=== PATIENT | female | born 1995 | race Caucasian/White ===

== ENCOUNTER 2016-08-08 17:07 | Emergency (ER) | payer OTHER ==
[2016-08-08 17:14] VITALS: BP 123/73
[2016-08-08] MEDS ORDERED: DIPHENHYDRAMINE HCL 50 MG CAPSULE PO ONE (17:51)
[2016-08-08] MEDS ORDERED: PREDNISONE 20 MG TABLET PO ONE (17:51)
--- NOTE | 2016-08-08 17:55 | ER Document Report ---
HPI - HPI Patient complains to provider of: facial rash Onset: This morning Onset/Duration: Gradual Quality of pain: No pain Pain Level: 0 Context: Patient complains of pruritic skin rash to her face. Patient does report using a new facial cleanser 3 days ago. Patient does complain of some mild itching. Patient without any difficulty breathing or swallowing. Associated Symptoms: Other - Facial rash. denies: Fever, Vomiting Exacerbated by: Denies Relieved by: Denies Similar symptoms previously: No Recently seen / treated by doctor: No - ROS ROS below otherwise negative: Yes Systems Reviewed and Negative: Yes All other systems reviewed and negative - CONSTITUTIONAL Constitutional: DENIES: Fever, Chills - EENT EENT: DENIES: Sore Throat - CARDIOVASCULAR Cardiovascular: DENIES: Chest pain - RESPIRATORY Respiratory: DENIES: Trouble Breathing - GASTROINTESTINAL Gastrointestinal: DENIES: Patient vomiting - REPRODUCTIVE Reproductive: DENIES: : - DERM Skin Color: Normal Skin Problems: Rash <MARC DEWITT - Last Filed: 08/08/16 19:08> Past Medical History - General Information source: Patient - Social History Smoking Status: Never Smoker Frequency of alcohol use: None Drug Abuse: None Occupation: food mixer Family History: DM Patient has suicidal ideation: No Patient has homicidal ideation: No Endocrine Medical History: Reports: Hx Hypothyroidism Renal/ Medical History: Reports: Hx Ovarian Cysts - PCOS. Denies: Hx Peritoneal Dialysis Past Surgical History: Reports: Hx Oral Surgery - wisdom teeth - Immunizations Immunizations up to date: Yes Hx Diphtheria, Pertussis, Tetanus Vaccination: Yes <MARC DEWITT - Last Filed: 08/08/16 19:08> Vertical Provider Document - CONSTITUTIONAL Agree With Documented VS: Yes Exam Limitations: No Limitations General Appearance: WD/WN, No Apparent Distress - INFECTION CONTROL TRAVEL OUTSIDE OF THE [place] IN LAST 30 DAYS: No - HEENT HEENT: Atraumatic, Normal ENT Exam, Normocephalic - NECK Neck: Normal Inspection - RESPIRATORY Respiratory: Breath Sounds Normal, No Respiratory Distress O2 Sat by Pulse Oximetry: 97 - CARDIOVASCULAR Cardiovascular: Regular Rate, Regular Rhythm - MUSCULOSKELETAL/EXTREMETIES Musculoskeletal/Extremeties: MAEW - NEURO Level of Consciousness: Awake, Alert, Appropriate Motor/Sensory: No Motor Deficit - DERM Integumentary: Warm, Dry, Rash - Erythematous maculopapular rash to face and upper chest area <MARC DEWITT - Last Filed: 08/08/16 19:08> Course - Re-evaluation Re-evalutation: 08/08/16 17:52 Pt with skin changes concerning for contact dermatitis. No evidence of urticaria, no angioedema - Vital Signs Vital signs: Temp Pulse Resp BP Pulse Ox 97.7 F 71 18 123/73 97 08/08/16 17:14 08/08/16 17:14 08/08/16 17:14 08/08/16 17:14 08/08/16 17:14 <MARC DEWITT - Last Filed: 08/08/16 19:08> - Vital Signs Vital signs: Temp Pulse Resp BP Pulse Ox 97.7 F 71 18 123/73 97 08/08/16 17:14 08/08/16 17:14 08/08/16 17:14 08/08/16 17:14 08/08/16 19:09 <GAURI BUENROSTRO - Last Filed: 08/09/16 14:44> Discharge <MARC DEWITT - Last Filed: 08/08/16 19:08> <GAURI BUENROSTRO - Last Filed: 08/09/16 14:44> - Discharge Clinical Impression: Dermatitis Condition: Stable Disposition: HOME, SELF-CARE Instructions: Corticosteroid Medication ([facility]), Contact Dermatitis ([facility]), Use of Diphenhydramine Additional Instructions: Return immediately for any new or worsening symptoms Followup with your primary care provider, call tomorrow to make a followup appointment Prescriptions: Prednisone [Deltasone 20 mg Tablet] 3 tab PO DAILY 5 Days Referrals: [facility] [Provider Group] - Follow up as needed
== END 2016-08-08 18:19 | disposition home or self-care (01) ==
LOC: ER 17:07
DX: L30.9 Dermatitis, unspecified (principal); E03.9 Hypothyroidism, unspecified
CPT/HCPCS: 99282; J7512

== ENCOUNTER 2016-11-06 20:09 | Emergency (ER) | payer OTHER ==
[2016-11-06 20:14] VITALS: BP 122/74
--- NOTE | 2016-11-06 23:01 | ER Document Report ---
HPI - HPI Patient complains to provider of: Sinus pain, congestion, cough, sore throat Pain Level: 4 Context: Patient is a 21-year-old female that comes emergency department for chief complaint of cold symptoms for 1 week, however she states that she has had increased pain along her sinuses, she points to her right maxillary sinus and left maxillary sinus as the most uncomfortable places, she has some nasal discharge, she has occasional cough with clear sputum, she has a sore throat and occasional hoarseness. She denies fever, difficulty breathing or swallowing , neck pain, headache. LMP within the past month. PMH PCOS and hypothyroidism. She denies smoking. - REPRODUCTIVE Reproductive: DENIES: : Past Medical History - General Information source: Patient - Social History Smoking Status: Never Smoker Chew tobacco use (# tins/day): No Frequency of alcohol use: None Drug Abuse: None Lives with: Family Family History: DM Patient has suicidal ideation: No Patient has homicidal ideation: No Endocrine Medical History: Reports: Hx Hypothyroidism Renal/ Medical History: Reports: Hx Ovarian Cysts - PCOS. Denies: Hx Peritoneal Dialysis Past Surgical History: Reports: Hx Oral Surgery - wisdom teeth - Immunizations Immunizations up to date: Yes Hx Diphtheria, Pertussis, Tetanus Vaccination: Yes Vertical Provider Document - CONSTITUTIONAL General Appearance: WD/WN, No Apparent Distress - INFECTION CONTROL TRAVEL OUTSIDE OF THE [place] IN LAST 30 DAYS: No - HEENT HEENT: Atraumatic, Normocephalic. negative: Normal ENT Exam - Patient is tender over maxillary sinuses, has mild nasal congestion, has mild throat erythema, unremarkable tonsils, clear airway, unremarkable ENT exam otherwise - NECK Neck: Normal Inspection - RESPIRATORY Respiratory: Breath Sounds Normal, No Respiratory Distress O2 Sat by Pulse Oximetry: 98 - CARDIOVASCULAR Cardiovascular: Regular Rate, Regular Rhythm - GI/ABDOMEN Gastrointestinal: Abdomen Soft, Abdomen Non-Tender - BACK Back: Normal Inspection - MUSCULOSKELETAL/EXTREMETIES Musculoskeletal/Extremeties: MAEW, FROM, Non-Tender - NEURO Level of Consciousness: Awake, Alert, Appropriate - DERM Integumentary: Warm, Dry, No Rash Course - Re-evaluation Re-evalutation: Physical examination and symptoms consistent with initial virus and sinus infection. Discussed with patient that this could still be viral, however because of one-week duration, maxillary sinus tenderness, patient will be placed on antibiotics along with symptom management. Discussed follow-up and return precautions. Patient states understanding and agreement. - Vital Signs Vital signs: Temp Pulse Resp BP Pulse Ox 98.5 F 95 18 122/74 98 11/06/16 20:12 11/06/16 20:12 11/06/16 20:12 11/06/16 20:12 11/06/16 20:12 Discharge - Discharge Clinical Impression: Cough Sinusitis Qualifiers: Sinusitis location: maxillary Chronicity: acute Recurrence: non-recurrent Qualified Code(s): J01.00 - Acute maxillary sinusitis, unspecified Pharyngitis Qualifiers: Pharyngitis/tonsillitis etiology: unspecified etiology Qualified Code(s): J02.9 - Acute pharyngitis, unspecified Condition: Stable Disposition: HOME, SELF-CARE Additional Instructions: You probably initially had a virus 1 week ago, examination today is consistent with a sinus infection with postnasal drainage and secondary cough. Take the amoxicillin as prescribed. Take the additional medications as prescribed. Continue ibuprofen or Tylenol for symptom management. Follow-up with primary care. Return to the emergency department for any concerning or worsening symptoms including severe headache, difficulty breathing, spiking fever, or any other concerning symptoms. Prescriptions: Amoxicillin Trihydrate [Amoxil 875 mg Tablet] 1 tab PO BID #14 tablet Fluticasone Propionate [Flonase Nasal [place] 50 Mcg/[place] 16 gm] 1 spray NASL Q12 #1 inhaler Pseudoephedrine HCl [Sudafed 12-Hour] 120 mg PO Q12 #20 tablet.sa Forms: Return to Work
== END 2016-11-06 23:35 | disposition home or self-care (01) ==
LOC: ER 20:09
DX: J01.00 Acute maxillary sinusitis, unspecified (principal); J02.9 Acute pharyngitis, unspecified; R05 Cough; R49.0 Dysphonia; R09.81 Nasal congestion
CPT/HCPCS: 99283

== ENCOUNTER 2016-11-07 15:05 | Emergency (ER) | payer OTHER ==
[2016-11-07 15:11] VITALS: BP 131/78
--- NOTE | 2016-11-07 15:20 | ER Document Report ---
ED Eye Complaint - General Chief Complaint: Eye Problem Stated Complaint: BILATERAL EYE SWELLING/DISCHARGE Time Seen by Provider: 11/07/16 15:13 Notes: Patient is a 21-year-old female who returns emergency department stating she has bilateral eye redness that started this morning. Patient states that she was seen here yesterday and diagnosed with viral upper respiratory infection and discharged home. She states she woke up this morning with clear drainage of bilateral eye redness with mild itching. She states that she does not wear contact lenses. She denies any changes in her vision, dizziness, blurriness, headaches. She denies any trauma. TRAVEL OUTSIDE OF THE [place] IN LAST 30 DAYS: No - Related Data Allergies/Adverse Reactions: No Known Allergies Allergy (Verified 11/07/16 15:09) Past Medical History - Social History Smoking Status: Never Smoker Family History: DM Endocrine Medical History: Reports: Hx Hypothyroidism Renal/ Medical History: Reports: Hx Ovarian Cysts - PCOS. Denies: Hx Peritoneal Dialysis Past Surgical History: Reports: Hx Oral Surgery - wisdom teeth - Immunizations Immunizations up to date: Yes Hx Diphtheria, Pertussis, Tetanus Vaccination: Yes Review of Systems - Review of Systems Constitutional: No symptoms reported EENT: See HPI Cardiovascular: No symptoms reported Respiratory: No symptoms reported -: Yes All other systems reviewed and negative Physical Exam - Vital signs Vitals: Temp Pulse Resp BP Pulse Ox 98.8 F 86 12 131/78 H 99 11/07/16 15:08 11/07/16 15:08 11/07/16 15:08 11/07/16 15:08 11/07/16 15:08 - General General appearance: Appears well, Alert In distress: None - HEENT Head: Normocephalic, Atraumatic Eyes: Normal, Pale conjunctiva Conjunctiva: Normal Cornea: Normal. No: Corneal abrasion, Corneal ulcer, Embedded foreign body, Flourescein stain uptake, Superficial foreign body Extraocular movements intact: Yes Eyelashes: Normal Pupils: PERRL Corrective lenses worn: No Lids everted for exam: bilateral: Normal Anterior chamber: Normal Fundascopic: Normal. No: Retinal detachment, Retinal hemorrhage Ears: Normal. No: Ecchymosis, Pinna laceration, Pinna tenderness, Tragus laceration, Tragus tenderness, Other External canal: Normal. No: Blood in canal, Cerumen impaction, Erythema, Foreign body, Swollen, Other Tympanic membrane: Normal. No: Bulging, Hemotympanum, Injected, Loss of landmarks, Perforation, Purulent effusion, Retracted, Serous effusion, Other Sinus: Normal. No: Abnormal, Frontal, Mastoid, Maxillary, Redness, Swelling, Tenderness, Other Nasal: Normal. No: Bloody discharge, Lianne deformity, Ecchymosis, Epistaxis, Purulent discharge, Septal hematoma, Swelling, Clear rhinorrhea, Other Mouth/Lips: Normal. No: Angioedema, Caries, Dental fracture, Laceration, Lesions, Other Mucous membranes: Normal Pharynx: Normal, Post nasal drainage. No: Peritonsillar abscess, Retropharyngeal abscess, Potential airway comprom. Neck: Normal. No: Anterior cervical chain, Posterior cervical chain, Lymphadenopathy Course - Re-evaluation Re-evalutation: 11/07/16 17:04 Patient is a 21-year-old female is hemodynamic stable, no acute distress afebrile. Presentation today is consistent with viral conjunctivitis. Will discharge patient home onPolytrim drops per her request. After performing a Medical Screening Examination, I estimate there is LOW risk for a RETAINED CORNEAL or LID FOREIGN BODY, DEEP SPACE INFECTION (e.g., ORBITAL CELLULITIS OR ABSCESS), ACUTE GLAUCOMA, PENETRATING GLOBE INJURY, RETINAL DETACHMENT, or MENINGITIS thus I consider the discharge disposition reasonable. I have reevaluated this patient multiple times and no significant life threatening changes are noted. Also, there is no evidence or peritonitis, sepsis , or toxicity. The patient and I have discussed the diagnosis and risks, and we agree with discharging home with outpatient follow-up with the understanding that symptoms and presentations can change. We also discussed returning to the Emergency Department immediately if new or worsening symptoms occur. We have discussed the symptoms which are most concerning (e.g., changing or worsening pain, vision changes, neck stiffness or fever) that necessitate immediate return. - Vital Signs Vital signs: Temp Pulse Resp BP Pulse Ox 98.8 F 86 12 131/78 H 99 11/07/16 15:08 11/07/16 15:08 11/07/16 15:08 11/07/16 15:08 11/07/16 15:08 Discharge - Discharge Clinical Impression: Conjunctivitis Qualifiers: Conjunctivitis type: acute Acute conjunctivitis type: unspecified Laterality: bilateral Qualified Code(s): H10.33 - Unspecified acute conjunctivitis, bilateral Condition: Good Disposition: HOME, SELF-CARE Instructions: Antibiotic Therapy ([facility]), Conjunctivitis ([facility]), Eyedrop Use ([facility]) Additional Instructions: Ophthalmic: Instill 1 drop in affected eye(s) every 3 hours (maximum: 6 doses per day) for 7-10 days Referrals: SAMEERA MORATAYA MD [ACTIVE STAFF] - Follow up as needed
[2016-11-07] MEDS ORDERED: POLYMYXIN B SULFATE/TMP OPH SOLN (10 ML/ER DISP) OU PRN (16:09)
== END 2016-11-07 16:28 | disposition home or self-care (01) ==
LOC: ER 15:05
DX: H10.33 Unspecified acute conjunctivitis, bilateral (principal); R09.82 Postnasal drip
CPT/HCPCS: 99283; J3490

== ENCOUNTER 2019-02-05 12:39 | Emergency (ER) | payer OTHER ==
[2019-02-05 12:46] VITALS: BP 143/88
[2019-02-05] MEDS ORDERED: LIDOCAINE 1% INJ-PF (10 MG/ML) 30 ML SDV INJ ONE (13:26)
--- NOTE | 2019-02-05 13:26 | ER Document Report ---
HPI - HPI Time Seen by Provider: 02/05/19 13:23 Notes: Otherwise healthy 23-year-old female presents emergency department chief complaint of laceration over her right eyebrow. Patient reports she bent over and hit her head on the kitchen table. She denies any loss of consciousness. Reports Tdap up-to-date. - REPRODUCTIVE Reproductive: DENIES: : Past Medical History - General Information source: Patient - Social History Smoking Status: Never Smoker Frequency of alcohol use: None Drug Abuse: None Family History: DM Endocrine Medical History: Reports: Hx Hypothyroidism Renal/ Medical History: Reports: Hx Ovarian Cysts - PCOS. Denies: Hx Peritoneal Dialysis Past Surgical History: Reports: Hx Oral Surgery - wisdom teeth - Immunizations Immunizations up to date: Yes Hx Diphtheria, Pertussis, Tetanus Vaccination: Yes Vertical Provider Document - CONSTITUTIONAL Notes: PHYSICAL EXAMINATION: GENERAL: Well-appearing, well-nourished and in no acute distress. HEAD: Atraumatic, normocephalic. EYES: Pupils equal round extraocular movements intact, conjunctiva are normal. ENT: Nares patent NECK: Normal range of motion LUNGS: No respiratory distress Musculoskeletal: Normal range of motion NEUROLOGICAL: Normal speech, normal gait. PSYCH: Normal mood, normal affect. SKIN: 2 cm laceration noted over the right eyebrow, well approximates, no active bleeding noted. - INFECTION CONTROL TRAVEL OUTSIDE OF THE [place] IN LAST 30 DAYS: No Course - Re-evaluation Re-evalutation: Laceration repaired under sterile technique, see procedure note. Patient tolerated well. - Vital Signs Vital signs: Temp Pulse Resp BP Pulse Ox 97.9 F 100 16 143/88 H 98 02/05/19 12:42 02/05/19 12:42 02/05/19 12:42 02/05/19 12:42 02/05/19 12:42 Procedures - Laceration/Wound Repair Facial laceration Wound length (cm): 2 Wound's Depth, Shape: Superficial Laceration pre-procedure: Sterile PPE donned Anesthetic type: 1% Lidocaine Wound explored: Clean Wound Debrided: Minimal Wound Repaired With: Sutures Suture Size/Type: 5:0 Number of Sutures: 5 Layer Closure?: No Post-procedure wound care: Sterile dressing applied Post-procedure NV exam normal: Yes Complications: No Discharge - Discharge Clinical Impression: Facial laceration Qualifiers: Encounter type: initial encounter Qualified Code(s): S01.81XA - Laceration without foreign body of other part of head, initial encounter Condition: Stable Disposition: HOME, SELF-CARE Additional Instructions: Laceration Care Your laceration has been sutured to keep the skin edges aligned during healing. The time of suture removal depends on the nature and location of your cut. Please follow the care instructions the doctor has outlined for you and return for further care, according to the schedule you've been given. Keep the wound and dressing clean. Unless you were told otherwise, you may shower daily, blotting the wound dry with a clean, unused towel. At other times, If the dressing gets wet or blood soaked, remove it and blot the wound dry, then reapply a new dressing. Unless you were instructed otherwise, dressings should be changed at least daily. If any signs of infection occur (swelling, redness, increasing tenderness, red streaks, tender lumps in the armpit or groin above the laceration, or fever), see the doctor immediately. Please return to the emergency department or your primary care provider in 5 days for suture removal. Please return earlier if you develop any signs of infection such as increased redness, swelling, foul-smelling drainage or fever.
== END 2019-02-05 14:25 | disposition home or self-care (01) ==
LOC: ER 12:39
DX: S01.111A Laceration without foreign body of right eyelid and periocular area, initial encounter (principal); W22.09XA Striking against other stationary object, initial encounter; E03.9 Hypothyroidism, unspecified
CPT/HCPCS: 99282